=== PATIENT | female | born 1965 ===

== ENCOUNTER 2017-01-02 12:40 | Day surgery (SDC) | payer SELFPAY ==
[~2017-01-02] VITALS: Ht 180 cm; Wt 59.9 kg
[2017-01-02] MEDS ORDERED: traMADol 50 MG TABLET PO PRN (13:45)
[2017-01-03] MEDS ORDERED: ATENOLOL 50 MG TABLET PO SCH (09:00)
== END 2017-01-02 13:00 | disposition home or self-care (01) ==
LOC: EDBD → SDC 12:40
PROVIDERS: ATTEND Internal Medicine
DX: Z53.21 Procedure and treatment not carried out due to patient leaving prior to being seen by health care provider (principal)
CPT/HCPCS: 36415; 80162; 85049; 85610